=== PATIENT | female | born 2005 | race Two or more races ===

== ENCOUNTER 2023-05-22 21:27 | Emergency (ER) | payer BC ==
[~2023-05-22] VITALS: Ht 149.9 cm; Wt 59.1 kg
[2023-05-22 21:35] VITALS: BP 144/74; PULSE 92; RESP 21; TEMP 98.4
[2023-05-22 21:55] LABS: COVID AG,FIA SOURCE NASAL SWAB
[2023-05-22 22:28] LABS: INFLUENZA TYPE A NEGATIVE FOR TYPE A (NEGATIVE); INFLUENZA TYPE B NEGATIVE FOR TYPE B (NEGATIVE); SARS-COV2 (COVID) ANTIGEN,FIA Negative (Negative)
[2023-05-22] MEDS ORDERED: BENZ-227 PO (22:52)
[2023-05-22] MEDS ORDERED: ACET-2080 PO (22:52)
[2023-05-22] MEDS ORDERED: IBUP-1554 PO (22:52)
== END 2023-05-22 23:37 | disposition home or self-care (01) ==
LOC: EMS 21:44
DX: J06.9 Acute upper respiratory infection, unspecified (principal); R42 Dizziness and giddiness; Z20.822 Contact with and (suspected) exposure to COVID-19
CPT/HCPCS: 87804; 93005; 99284; Z7502

== ENCOUNTER 2024-12-31 11:07 | Emergency (ER) | payer BC, OTHER ==
[~2024-12-31] VITALS: Ht 149.9 cm; Wt 65.0 kg
[~2024-12-31 11:07] MED LIST: ACET-2080 PO; BENZ-227 PO; IBUP-1554 PO
[2024-12-31 12:01] LABS: APPEARANCE,URINE CLEAR (CLEAR); GLUCOSE, URINE (UA) NEGATIVE (NEGATIVE); HCG,QUAL URINE POSITIVE (NEGATIVE); LEUKOCYTE ESTERASE ,URINE NEGATIVE (NEGATIVE); NITRATE,URINE NEGATIVE (NEGATIVE); OCCULT BLOOD,URINE NEGATIVE (NEGATIVE); SPECIFIC GRAVITIY, URINE 1.009 (1.003-1.030)
[2024-12-31 12:02] LABS: PLATELET COUNT (AUTO) 348 K/uL (150-450); RED BLOOD CELL COUNT(AUTO) 4.39 MIL/uL (4.00-5.20); RED CELL DISTRIBUTION WIDTH 12.9 % (11.5-14.5); WHITE BLOOD COUNT (AUTO) 8.9 K/uL (4.5-11.0)
[2024-12-31 12:05] LABS: CALCIUM, TOTAL 8.8 mg/dL (8.8-10.5); CREATININE 0.56 mg/dL (0.60-1.30); GLOMERULAR FILTR. RATE CALC > 60 mL/min (>60); GLUCOSE,RANDOM 88 mg/dL (70-110); SODIUM SERUM 138 mmol/L (136-145); UREA NITROGEN, BLOOD 6 mg/dL (7-18)
[2024-12-31 12:41] LABS: ASPARTATE AMINOTRANSFERASE 30 U/L (15-37); HCG,QUANTITATIVE 31908 mIU/mL (0-6); TOTAL PROTEIN, SERUM 7.4 g/dL (6.4-8.2)
[2024-12-31] MEDS: SODIUM CHLORIDE 0.9% 1,000 ML IV ONE (13:36)
[2024-12-31 16:40] VITALS: BP 101/67; PULSE 61; RESP 16; TEMP 98.405312; O2SAT 99
== END 2024-12-31 16:40 | disposition home or self-care (01) ==
LOC: EMS 11:07
DX: O20.9 Hemorrhage in early pregnancy, unspecified (principal); Z3A.01 Less than 8 weeks gestation of pregnancy; Z79.899 Other long term (current) drug therapy
CPT/HCPCS: 99284; 96360; 76801; 96361; 80053; 81003; 84702; 84703; 85025; 86901; 36415; J7030